=== PATIENT | male | born 1955 | race Caucasian/White ===

== ENCOUNTER 2019-03-18 13:00 | Inpatient (IN) | payer MEDICARE, MEDICAID ==
[~2019-03-18] VITALS: Ht 182.9 cm; Wt 91.8 kg
[2019-03-18 14:20] VITALS: BP 142/85
--- NOTE | 2019-03-18 14:20 | NUR ---
63 year old MALE admitted to room # 515-2 for stabilization. 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 Compliant with admission procedure. Patient denies any anxiety, but is unable to sit still, taps toes to floor continuously, looks about room, unable to focus eyes on nurse during interview. See assessment forms for additional information about patient status.
[2019-03-18 14:42] VITALS: BP 142/85
--- NOTE | 2019-03-18 14:43 | NUR ---
PATIENT MEETS [facility]. CINA=19. PATIENT IS WANTING TO FOLLOW UP WITH [facility] FOR OUTPATIENT TREATMENT FOR HIS AFTERCARE PLAN. OLIVER BERGER B.A. GUARD RANGE
[2019-03-18] MEDS ORDERED: BACLOFEN20 M1 PO (15:23)
[2019-03-18] MEDS ORDERED: TRAZODONE150 MG PO (15:23)
[2019-03-18] MEDS ORDERED: NEURONTIN300 MG PO (15:24)
[2019-03-18 15:48] LABS: BASO % 0.4 % (0.0-1.0); EOS # 0.1 10*3/uL (0.0-0.4); EOS % 0.9 % (1.0-4.0); HEMATOCRIT 42.7 % (42.0-52.0); HEMOGLOBIN 14.1 g/dl (14.0-18.0); LYMPH # 1.4 10*3/uL (1.3-4.4); LYMPH % 14.7 % (27.0-41.0); MEAN CELL VOLUME 92.6 fl (80.0-94.0); MEAN CORPUSCULAR HGB 30.6 pg (27.0-31.0); MEAN PLATELET VOLUME 9.2 fl (9.6-12.3); MONO # 0.5 10*3/uL (0.1-1.0); MONO % 5.2 % (3.0-9.0); NEUT # 7.3 10*3/uL (2.3-7.9); NEUT % 77.9 % (47.0-73.0); PLATELET COUNT AUTOMATED 310 10*3/uL (130-400); RED BLOOD COUNT 4.61 10*6/uL (4.50-5.90); RED CELL DISTRI WIDTH 12.9 % (0-14.5); WHITE BLOOD COUNT 9.4 10*3/uL (4.8-10.8)
[2019-03-18 16:00] VITALS: BP 116/84
[2019-03-18 16:02] LABS: INTERNATIONAL NORM RATIO 0.9 (2.0-3.5)
[2019-03-18 16:04] LABS: BUN 16 mg/dl (7-24); CHLORIDE 108 mmol/L (98-107); CREATININE 0.77 mg/dL (0.70-1.30); POTASSIUM 3.9 mmol/L (3.5-5.1); SGOT/AST 13 IU/L (3-35); SGPT/ALT 23 U/L (12-78); SODIUM 142 mmol/L (136-145)
[2019-03-18 16:06] LABS: ALKALINE PHOSPHATASE 89 U/L (45-117); TOTAL PROTEIN 7.4 gm/dL (6.4-8.2)
[2019-03-18 16:18] LABS: ETHYL ALCOHOL < 3.0 mg/dl (<3)
[2019-03-18 19:13] LABS: BILIRUBIN 1+ (NEGATIVE); BLOOD NEGATIVE (NEGATIVE); CLARITY CLEAR (CLEAR); COLOR YELLOW (YELLOW); GLUCOSE NEGATIVE (NEGATIVE); KETONE TRACE (NEGATIVE); LEUKO ESTERASE NEGATIVE (NEGATIVE); NITRITE NEGATIVE (NEGATIVE); SPECIFIC GRAVITY 1.025 (1.005-1.030); UROBILINOGEN 0.2 E.U./dl (0.2-1.0)
[2019-03-18 19:14] LABS: BACTERIA TRACE; WBC 0-2 wbc/hpf (0-5)
[2019-03-19] VITALS: BP 122/71
[2019-03-19 08:00] VITALS: BP 108/65
--- NOTE | 2019-03-19 08:41 | NUR ---
PATIENT C/O NAUSEA/VOMITING, HEADACHE, ACHING ALL OVER. MEDICATED WITH MOTRIN,BENTYL,ROBAXIN AND ZOFRAN PER PRN ORDERS. PATIENT STATES "I'VE BEEN THROWING UP ALL NIGHT". THEN PROCEEDS TO ORDER A LARGE BREAKFAST.
--- NOTE | 2019-03-19 14:54 | NUR ---
PATIENT WILL FOLLOW UP WITH [facility] IN [place], [place] FOR OUTPATIENT TREATMENT. THE FACILITY HAS WALK-ASSESSMENTS ON TUESDAYS AND THURSDAYS FROM 9AM TO 3PM. PATIENT AGREES AND UNDERSTANDS HIS AFTERCARE PLAN. PATIENT REPORTS THAT FAMILY WILL PROVIDE TRASPORTATION ONCE HE IS DISCHARGED. OLIVER BERGER B.A. CASINO CAGE MANAGER
--- NOTE | 2019-03-19 20:35 | NUR ---
PT RESTING IN BED. NO COMPLAINTS AT THIS TIME AND DENIES THE NEED FOR ANYTHING AT THIS TIME. ASSESSMENT COMPLETE. CALL LIGHT WITHIN REACH. WILL CONTINUE TO MONITOR.
--- NOTE | 2019-03-19 22:08 | NUR ---
24 HR chart check completed.
[2019-03-20] VITALS: BP 115/70
[2019-03-20 08:00] VITALS: BP 100/58
--- NOTE | 2019-03-20 08:35 | NUR ---
Sat with patient for about 10 mins to determine if he was withdrawaling or if something else might be contributing to "odd" behavior. Patient couldn't stay awake. He was aggitated, had uncontrolled jerky movements. He tried to sit on the side of the bed but almost fell forward because he was so drowsy. Patient had to frequently be reoriented. Patient stated the president was Cayden Cueva, it was 2005, and he was in [facility]. SpO2 was 88% on RA. Oxygen was applied and Dr. Joshi notified at 0855. Physician followed up immediately at patients bedside. See new orders.
[2019-03-20 09:24] LABS: ABG BASE EXCESS 2.3 mmol/L (-2.0-2.0); ARTERIAL BLOOD GAS PH 7.33 (7.35-7.45)
[2019-03-20 09:34] LABS: BASO % 0.3 % (0.0-1.0); EOS # 0.1 10*3/uL (0.0-0.4); EOS % 1.3 % (1.0-4.0); HEMATOCRIT 41.3 % (42.0-52.0); LYMPH # 1.3 10*3/uL (1.3-4.4); LYMPH % 13.2 % (27.0-41.0); MEAN CORPUSCULAR HGB 30.4 pg (27.0-31.0); MEAN CORPUSCULAR HGB CONC 31.5 g/dl (33.0-37.0); MONO # 0.7 10*3/uL (0.1-1.0); MONO % 6.8 % (3.0-9.0); NEUT # 7.9 10*3/uL (2.3-7.9); PLATELET COUNT AUTOMATED 280 10*3/uL (130-400); RED BLOOD COUNT 4.28 10*6/uL (4.50-5.90); RED CELL DISTRI WIDTH 12.8 % (0-14.5); WHITE BLOOD COUNT 10.2 10*3/uL (4.8-10.8)
[2019-03-20 09:35] LABS: MEAN CELL VOLUME 96.5 fl (80.0-94.0)
[2019-03-20 09:59] LABS: ALBUMIN 3.7 gm/dl (3.1-4.5); ALKALINE PHOSPHATASE 86 U/L (45-117); BUN 24 mg/dl (7-24); CHLORIDE 105 mmol/L (98-107); CREATININE 0.82 mg/dL (0.70-1.30); POTASSIUM 4.2 mmol/L (3.5-5.1); SGOT/AST 10 IU/L (3-35); SGPT/ALT 19 U/L (12-78); SODIUM 140 mmol/L (136-145); TOTAL PROTEIN 6.9 gm/dL (6.4-8.2)
--- NOTE | 2019-03-20 10:30 | NUR ---
TOOK CT HEAD RESULTS THAT REC STAT MRI BRAIN WITH IV CONTRAST R/T JERKING & AMS SINCE ON CT THERE ARE POST SURGICAL CHANGES IN THE BRAIN. INFORMED DR THOMAS AND INFORMED NURSE TAKING CARE OF PT.
--- NOTE | 2019-03-20 11:40 | NUR ---
Patient ambulated to toilet. He is more steady at the present time. Patient c/o headache and patient seems to "word search" and gets frustruated, sighs and lays down.
[2019-03-20 16:00] VITALS: BP 113/55
--- NOTE | 2019-03-20 17:45 | NUR ---
Updated on patients improved cognition, motor control and his poor memory c/o headache and light sensitivity. Will continue to monitor.
--- NOTE | 2019-03-20 20:02 | NUR ---
PT RESTING IN BED. PT COMPLAINS OF FEELING ANXIOUS AND REQUESTING HIS LIBRIUM. I EXPLAINED TO PT HIS LIBRIUM WAS DISCONTINUED. PT STATES HE TAKES THE LIBRIUM TO CALM HIM DOWN. OFFERED THE PT VISTARIL AND PT STATES "YES THAT WILL BE FINE" MEDICATED WITH PRN VISTARIL ORDERED. PT IS ALERT AND ORIENTED. RESPIRATIONS EASY AND REGULAR. NO OTHER COMPLAINTS AT THIS TIME. CALL LIGHT WITHIN REACH. WILL CONTINUE TO MONITOR.
--- NOTE | 2019-03-20 21:00 | NUR ---
PT RESTING IN BED. RESPIRATIONS EASY AND REGULAR. VISTARIL SEEMS TO BE EFFECTIVE.
--- NOTE | 2019-03-20 21:49 | NUR ---
PT REQUESTING SOMETHING FOR HIS "TERRIBLE HEADACHE" MEDICATED WITH PRN TYLENOL ORDERED. WILL CHECK EFFECTIVENESS. CALL LIGHT WITHIN REACH.
--- NOTE | 2019-03-20 23:00 | NUR ---
PT STATES TYLNEOL WAS SOMEWHAT EFFECTIVE FOR HEADACHE, BUT HE ALWAYS HAS THIS HEADACHE. WILL CONTINUE TO MONITOR.
[2019-03-21] VITALS: BP 116/65
--- NOTE | 2019-03-21 00:36 | NUR ---
24 HR chart check completed.
--- NOTE | 2019-03-21 06:14 | NUR ---
PT AWAKE, ALERT TO PERSON, PLACE AND TIME. RESPIRATIONS EASY AND REGULAR. PATIENT HAS NO COMPLAINTS THIS MORNING. CALL LIGHT WITHIN REACH. WILL CONTINUE TO MONITOR.
[2019-03-21 08:00] VITALS: BP 116/71
--- NOTE | 2019-03-21 08:50 | NUR ---
PATIENT COMPLAINING OF AGITATION, SHAKINESS, HEADACHE, AND STOMACH CRAMPS. MEDICATED WITH PRN VISTARIL, MOTRIN, AND BENTYL AT THIS TIME. WILL MONITOR.
[2019-03-21] MEDS ORDERED: METHOCARBAMOL750 M1 PO (10:43)
[2019-03-21] MEDS ORDERED: ROPINIROLE HYD0.5 MG PO (10:44)
[2019-03-21] MEDS ORDERED: ATARAX,VISTARIL50 MG PO (10:44)
--- NOTE | 2019-03-21 12:45 | NUR ---
Discharge instructions reviewed with patient/family. Patient receptive and verbalizes understanding. Follow-up care arranged. Written instructions given to patient/family. HEPLOCK DISCONTINUED. HOME MEDICATIONS OBTAINED FROM PHARMACY AND GIVEN BACK TO PATIENT. AMBULATORY OFF FLOOR WITH FAMILY MEMBER. WILLIE CHAU
== END 2019-03-21 12:45 | disposition home or self-care (01) | DRG 896 ==
LOC: 5E 13:00
PROVIDERS: Internal Medicine; Student in an Organized Health Care Education/Training Program; ADMIT Internal Medicine
DX: F11.23 Opioid dependence with withdrawal (principal); G93.41 Metabolic encephalopathy; J96.00 Acute respiratory failure, unspecified whether with hypoxia or hypercapnia; E87.2 Acidosis; M50.30 Other cervical disc degeneration, unspecified cervical region; M51.36 Other intervertebral disc degeneration, lumbar region; E87.8 Other disorders of electrolyte and fluid balance, not elsewhere classified; R73.9 Hyperglycemia, unspecified; R11.14 Bilious vomiting; Z85.841 Personal history of malignant neoplasm of brain; Z79.899 Other long term (current) drug therapy